=== PATIENT | female | born 1970 | race Two or more races ===

== ENCOUNTER 2020-07-21 07:45 | Inpatient (IN) | payer OTHER ==
[~2020-07-21] VITALS: Ht 165.1 cm; Wt 108.9 kg
[2020-07-21] MEDS ORDERED: HYZAAR 100-251 EACH PO (09:34)
[2020-07-21] MEDS ORDERED: ZOLOFT25 MG PO (09:35)
[2020-07-21] MEDS ORDERED: CLONAZEPAM0.5 MG PO (09:35)
[2020-07-21] MEDS ORDERED: DEPAKOTE SPRIN125 MG PO (09:37)
[2020-07-21] MEDS ORDERED: CLARITIN10 M1 PO (09:37)
[2020-07-21] MEDS ORDERED: SEROQUEL25 MG PO (09:37)
[2020-07-21] MEDS ORDERED: ZANAFLEX2 M1 PO (09:38)
[2020-07-21] MEDS ORDERED: LIPITOR20 MG PO (09:38)
[2020-07-21] MEDS ORDERED: SINGULAIR10 MG PO (09:38)
[2020-07-21] MEDS ORDERED: PLAQUENIL (09:39)
[2020-07-21] MEDS ORDERED: ALLOPURINOL100 MG PO (09:39)
[2020-07-21] MEDS ORDERED: MEDROL2 MG PO (09:40)
[2020-07-21] MEDS ORDERED: METHOTREXA25 MG/1 M5 SUBCUTANEO (09:41)
[2020-07-21] MEDS ORDERED: JANUMET 50-1,01 EACH PO (09:41)
[2020-07-21] MEDS ORDERED: ORENCIA 250 MG250 MG IV (09:42)
[2020-07-21] MEDS ORDERED: INVOKANA100 MG PO (09:42)
[2020-07-21] MEDS ORDERED: BYDUREON P2 MG/0.65 (09:43)
[2020-07-21] MEDS ORDERED: RESTORIL30 M1 PO (09:43)
[2020-07-21] MEDS ORDERED: VITAMIN D-40010 MCG PO (09:45)
[2020-07-21] MEDS ORDERED: VITAMIN C500 M6 PO (09:46)
[2020-07-30] MEDS ORDERED: XARELTO10 MG PO (06:10)
[2020-07-30] MEDS ORDERED: OXYC1TAB9 PO (06:10)
[2020-07-30] MEDS ORDERED: INTEGRA PLUS C1 EACH PO (06:10)
[2020-07-30] MEDS ORDERED: BACTRIM 400-801 EACH PO (06:10)
== END 2020-07-30 15:43 | DRG 470 ==
LOC: SURH 07-28 05:47 → O/R 07-28 05:47 → SURH 07-28 07:00
PROVIDERS: ADMIT Orthopaedic Surgery Sports Medicine; ATTEND Orthopaedic Surgery Sports Medicine
PROC: 0SRD0J9 Replacement of Left Knee Joint with Synthetic Substitute, Cemented, Open Approach (ICD-10-PCS; principal; 2020-07-28 07:00)
DX: M17.12 Unilateral primary osteoarthritis, left knee (principal); I10 Essential (primary) hypertension; E11.9 Type 2 diabetes mellitus without complications; F32.9 Major depressive disorder, single episode, unspecified

== ENCOUNTER 2020-07-30 20:08 | Emergency (ER) | payer OTHER ==
[~2020-07-30] VITALS: Ht 165.1 cm; Wt 108.9 kg
[~2020-07-30 20:08] MED LIST: ALLOPURINOL100 MG PO; BACTRIM 400-801 EACH PO; BYDUREON P2 MG/0.65; CLARITIN10 M1 PO; CLONAZEPAM0.5 MG PO; DEPAKOTE SPRIN125 MG PO; HYZAAR 100-251 EACH PO; INTEGRA PLUS C1 EACH PO; INVOKANA100 MG PO; JANUMET 50-1,01 EACH PO; LIPITOR20 MG PO; MEDROL2 MG PO; METHOTREXA25 MG/1 M5 SUBCUTANEO; ORENCIA 250 MG250 MG IV; OXYC1TAB9 PO; PLAQUENIL; RESTORIL30 M1 PO; SEROQUEL25 MG PO; SINGULAIR10 MG PO; VITAMIN C500 M6 PO; VITAMIN D-40010 MCG PO; XARELTO10 MG PO; ZANAFLEX2 M1 PO; ZOLOFT25 MG PO
== END 2020-07-31 18:02 | disposition home or self-care (01) ==
LOC: ER 20:08
DX: U07.1 COVID-19 (principal); R50.9 Fever, unspecified